=== PATIENT | female | born 1950 | race Caucasian/White ===

== ENCOUNTER 2019-11-29 14:37 | Emergency (ER) | payer MEDICARE, OTHER, SELFPAY ==
[2019-11-29 14:51] VITALS: BP 156/77; PULSE 93; RESP 16; TEMP 37.5; O2SAT 98
--- NOTE | 2019-11-29 15:33 | ED.GENADULT ---
HPI - General Adult General Chief complaint: Wound/Laceration Stated complaint: Fall Facial Injury Time Seen by Provider: 11/29/19 15:34 Source: patient Mode of arrival: ambulatory Limitations: no limitations History of Present Illness HPI narrative: 69-year-old female patient presents to the [facility] with complaints of a facial wound. Patient states that about noon today she was helping her granddaughter get on the school bus when she tripped and fell face first onto a concrete sidewalk. Patient unsure when her last tetanus shot was. Patient denies losing consciousness. Patient denies any lightheadedness, dizziness at this time. Denies any vision changes. Patient states that when she cleaned away some of the blood she noticed that there was a laceration to the upper lip and wanted to come and get checked out today. Related Data Home Medications Medication Instructions Recorded Confirmed alendronate 70 mg PO WEEKLY 11/29/19 11/29/19 aspirin [Aspir-Low] 81 mg PO DAILY 11/29/19 11/29/19 citalopram 20 mg PO DAILY 11/29/19 11/29/19 estradiol 2 mg PO DAILY 11/29/19 11/29/19 medroxyprogesterone [Provera] 2.5 mg PO DAILY 11/29/19 11/29/19 meloxicam 15 mg PO DAILY 11/29/19 11/29/19 mirtazapine 7.5 mg PO HS 11/29/19 11/29/19 Allergies Allergy/AdvReac Type Severity Reaction Status Date / Time hydrocodone Allergy Itching Verified 11/29/19 15:21 Review of Systems Review of Systems: Narrative: CONSTITUTIONAL: Denies fever, chills, or sweats. EYES: Denies visual changes, redness, or discharge. ENT: Denies rhinorrhea, congestion, sore throat, or otalgia. CARDIOVASCULAR: Denies chest pain, palpitations, or edema. RESPIRATORY: Denies cough or dyspnea. GASTROINTESTINAL: Denies abdominal pain, nausea, vomiting, or diarrhea. GENITOURINARY: Denies dysuria or hematuria. SKIN: Denies rash or itching. Positive abrasions to the bridge of the nose, laceration to the upper lip. MUSCULOSKELETAL: Denies back pain, joint pain, or myalgia. NEUROLOGIC: Denies headache, numbness, or weakness. PSYCHIATRIC: Denies anxiety or depression. PMFSH Comments At the time of my signature I agree with nursing past medical history, surgical, social, and family history. There is no relevant family history pertinent to the presenting complaint. Exam Narrative: Exam Narrative: GENERAL: Well-appearing, well-nourished, and in no acute distress. HEAD: Normocephalic, patient has some abrasions noted to the bridge of the nose. Bruising noted under the right eye. Superficial abrasions noted to the upper lip. The inside of the upper lip does have approximately 1.5 cm gaping laceration. EYES: PERRLA and EOMI. ENT: Nares clear, no rhinorrhea or epistaxis. Mucous membranes moist. Posterior pharynx with no erythema, tonsillar margin, exudates or lesions present. Bilateral TMs are clear no erythema or foreign bodies in the canal. NECK: Supple. No lymphadenopathy CHEST: Clear to auscultation. No respiratory distress. HEART: Regular rate and rhythm. No murmur heard. Normal peripheral pulses. ABDOMEN: Soft, nontender, nondistended, normal active bowel sounds. EXTREMITIES: Normal range of motion. No edema. SKIN: Warm, dry, no rash. NEURO: Alert and oriented x4, GCS 15. Cranial nerves II through XII grossly intact. No focal neurological deficits. Normal muscle strength and tone. Normal deep tendon reflexes. Negative Babinski, normal finger to nose coordination he had normal heel to smith glide. Speech is clear. Normal gait. Negative Romberg and no pronator drift Course Vital Signs Vital signs: Vital Signs Temperature 37.5 C 11/29/19 14:51 Pulse Rate 93 11/29/19 14:51 Respiratory Rate 16 11/29/19 14:51 Blood Pressure 156/77 H 11/29/19 14:51 Pulse Oximetry 98 11/29/19 14:51 Temperature 37.5 C 11/29/19 14:51 Pulse Rate 93 11/29/19 14:51 Respiratory Rate 16 11/29/19 14:51 Blood Pressure 156/77 H 11/29/19 14:51 Pulse Oximetry 98 11/29/19 14:5
[2019-11-29] MEDS: TETANUS,DIPHTHERIA,AC PERTUSSIS ADULT (0.5 ML) BOOSTRIX IM (15:53)
== END 2019-11-29 16:30 | disposition home or self-care (01) ==
PROVIDERS: Emergency Provider Nurse Practitioner Family; PCP Family Medicine
DX: S01.511A Laceration without foreign body of lip, initial encounter (principal); W10.1XXA Fall (on)(from) sidewalk curb, initial encounter; Z23 Encounter for immunization
CPT/HCPCS: 12011; 90471; 90715; 99213; G0463

== ENCOUNTER 2022-10-24 09:10 | Emergency (ER) | payer MEDICARE, SELFPAY ==
[2022-10-24 09:16] VITALS: BP 169/80; PULSE 94; RESP 20; TEMP 36.9; O2SAT 100
--- NOTE | 2022-10-24 09:27 | ED.CHESTPAIN ---
HPI - Chest Pain General Chief Complaint: Chest Pain Stated Complaint: Chest tight / sob History of Present Illness HPI narrative: Patient presents with chest tightness. Patient states she has had this going on for the last 4 days. Patient states the chest pain is worse with exertion and she is short of breath with exertion. Chest pain is worse with inspiration she denies any radiation of the pain. Patient denies any cough denies any lung or heart problems. Related Data Home Medications Medication Instructions Recorded Confirmed alendronate 70 mg tablet 70 mg PO WEEKLY 11/29/19 11/29/19 citalopram 20 mg tablet 20 mg PO DAILY 11/29/19 11/29/19 estradiol 2 mg tablet 2 mg PO DAILY 11/29/19 11/29/19 medroxyprogesterone 2.5 mg tablet 2.5 mg PO DAILY 11/29/19 11/29/19 (Provera) meloxicam 15 mg tablet 15 mg PO DAILY 11/29/19 11/29/19 mirtazapine 7.5 mg tablet 7.5 mg PO HS 11/29/19 11/29/19 Allergies Allergy/AdvReac Type Severity Reaction Status Date / Time hydrocodone Allergy Itching Verified 10/24/22 09:18 Review of Systems Review of Systems: CONSTITUTIONAL: Denies fever, chills, or sweats. EYES: Denies visual changes, redness, or discharge. ENT: Denies rhinorrhea, congestion, sore throat, or otalgia. CARDIOVASCULAR: Denies chest pain, palpitations, or edema. RESPIRATORY: Denies cough or dyspnea. GASTROINTESTINAL: Denies abdominal pain, nausea, vomiting, or diarrhea. GENITOURINARY: Denies dysuria or hematuria. SKIN: Denies rash or itching. MUSCULOSKELETAL: Denies back pain, joint pain, or myalgia. NEUROLOGIC: Denies headache, numbness, or weakness. PSYCHIATRIC: Denies anxiety or depression. PMFSH Comments At time of signature, agree with nursing past medical, surgical, social and family history. There is no relevant family history pertinent to the presenting complaint Exam Narrative: GENERAL: Well-appearing, well-nourished, and in no acute distress. HEAD: Normocephalic, atraumatic. EYES: PERRLA and EOMI. ENT: Nares clear, no rhinorrhea or epistaxis. Mucous membranes moist. NECK: Supple. CHEST: Clear to auscultation. No respiratory distress. HEART: Regular rate and rhythm. No murmur heard. Normal peripheral pulses. ABDOMEN: Soft, nontender, nondistended, normal active bowel sounds. EXTREMITIES: Normal range of motion. No edema. SKIN: Warm, dry, no rash. NEURO: No focal deficits. Alert and oriented x3. Kathryn Coma Scale Eye Opening: Spontaneous 4 Fiatt Coma Scale Motor: Obeys Commands 6 Kathryn Coma Scale Verbal: Oriented 5 Kathryn Coma Scale Total 15 Course Course Level of Care: Express Care Visit Vital Signs Vital signs: Vital Signs Temperature 36.9 C 10/24/22 09:16 Pulse Rate 94 10/24/22 09:16 Respiratory Rate 20 10/24/22 09:16 Blood Pressure 169/80 H 10/24/22 09:16 Pulse Oximetry 100 10/24/22 09:16 Oxygen Delivery Room Air 10/24/22 09:16 Temperature 36.9 C 10/24/22 09:16 Pulse Rate 94 10/24/22 09:16 Respiratory Rate 20 10/24/22 09:16 Blood Pressure 169/80 H 10/24/22 09:16 Pulse Oximetry 100 10/24/22 09:16 Oxygen Delivery Room Air 10/24/22 09:16 Please JOANNA schedule a followup visit with your personal physician for further evaluation and treatment. Including recheck and discussion of your blood pressure. If your symptoms persist, change or worsen significantly before you can contact your personal physician then please, without delay, go to the emergency department for further evaluation Transfer Transfered to: [facility] Transportation: Other (Patient declined ambulance will go by private vehicle) Transfer rationale: Higher level care to improve evaluate chest pain and pain with inspiration Accepting physician: Dr. Gr Transfer comments: Patient refuses to go by ambulance states she can not drive herself by private vehicle MDM - Chest Pain Differential Diagnosis Differential diagnosis: Likely fracture of rib, pneumothorax, stab
--- NOTE | 2022-10-24 09:28 | ECG_ITS ---
Measurements Intervals [place] Rate: 87 P: 38 RI: 152 QRS: 34 QRSD: 76 T: 58 QT: 330 QTc: 398 Interpretive Statements SINUS RHYTHM RSR' IN V1 OR V2, PROBABLY NORMAL VARIANT BORDERLINE ECG NO PREVIOUS ECG AVAILABLE FOR COMPARISON Electronically Signed On 10-24-2022 13:17:08 BUSINESS INTELLIGENCE ADMINISTRATOR by Chandrakant Jacobs D.O.
== END 2022-10-24 09:45 | disposition short-term general hospital (02) ==
PROVIDERS: Emergency Provider Nurse Practitioner Family; PCP Family Medicine
DX: R07.9 Chest pain, unspecified (principal); R07.89 Other chest pain; I10 Essential (primary) hypertension; M81.0 Age-related osteoporosis without current pathological fracture
CPT/HCPCS: 93005; 99213; G0463

== ENCOUNTER 2022-11-16 08:55 | Emergency (ER) | payer MEDICARE, SELFPAY ==
--- NOTE | ~2022-11-16 | XR_ITS ---
Clinical Indication: Pneumonia, cough PA and lateral views of the chest: Comparison: None Findings: Probable calcified right lung granulomas noted. No other consolidation or pleural effusion. Possible COPD. Cardiomediastinal silhouette is within normal limits. Bones and soft tissues are unr emarkable. Impression: Possible COPD, with evidence of prior granulomatous disease. No acute consolidation or pleural effusion. Reviewed, dictated and finalized at location . [employer] Impression: Possible COPD, with evidence of prior granulomatous disease. No acute consolidation or pleural effusion.
[2022-11-16 09:04] VITALS: BP 144/68; PULSE 94; RESP 16; TEMP 36.9; O2SAT 100
--- NOTE | 2022-11-16 09:18 | ED.URI ---
HPI - URI/Sore Throat General Chief Complaint: Upper Respiratory Infection Stated Complaint: Sore Throat/Cough Source: patient and RN notes reviewed History of Present Illness HPI Narrative: 72-year-old female presents urgent care with complaints of a cough and sore throat since yesterday. Patient denies any fevers, chills, chest pain, vomiting, diarrhea, congestion, or ear pain. Patient states she was diagnosed with pneumonia at the end of September and was placed on a Z-Edis at that time. Some parts of this dictation were generated by voice recognition software and may contain typographical and/or grammatical inaccuracies. Related Data Home Medications Medication Instructions Recorded Confirmed alendronate 70 mg tablet 70 mg PO WEEKLY 11/29/19 11/16/22 citalopram 20 mg tablet 20 mg PO DAILY 11/29/19 11/16/22 estradiol 2 mg tablet 2 mg PO DAILY 11/29/19 11/16/22 medroxyprogesterone 2.5 mg tablet 2.5 mg PO DAILY 11/29/19 11/16/22 (Provera) celecoxib 100 mg capsule 100 mg PO DIRECTED 10/24/22 11/16/22 hydrochlorothiazide 12.5 mg tablet 12.5 mg PO DIRECTED 10/24/22 11/16/22 losartan 50 mg tablet 50 mg PO DIRECTED 10/24/22 11/16/22 Allergies Allergy/AdvReac Type Severity Reaction Status Date / Time hydrocodone Allergy Itching Verified 11/16/22 09:08 Review of Systems Review of Systems: CONSTITUTIONAL: Denies fever, chills, or sweats. EYES: Denies visual changes, redness, or discharge. ENT: Reports sore throat CARDIOVASCULAR: Denies chest pain, palpitations, or edema. RESPIRATORY: Reports cough but denies any shortness of breath GASTROINTESTINAL: Denies abdominal pain, nausea, vomiting, or diarrhea. GENITOURINARY: Denies dysuria or hematuria. SKIN: Denies rash or itching. MUSCULOSKELETAL: Denies back pain, joint pain, or myalgia. NEUROLOGIC: Denies headache, numbness, or weakness. PMFSH Comments At the time of my signature, I reviewed and agree with the nursing past medical, surgical, social, and family history. There is no relevant family history pertinent to the patient complaint. Exam Narrative: GENERAL: This is a well-nourished, well-developed patient, in no apparent distress. HEAD: normocephalic, atraumatic. EYES: PERRL. Sclera clear/white. Vision is grossly intact. EARS: External ears normal, auditory canals clear and without drainage, TMs normal without perforation. Hearing grossly intact. NOSE: External nose normal with no obvious nasal discharge, nares without redness, no rhinorrhea. THROAT: Mucous membranes moist, posterior pharynx clear. NECK: Neck supple, non-tender without lymphadenopathy, masses or thyromegaly. CARDIOVASCULAR: Regular rate and rhythm without murmurs, gallops, or rubs. RESPIRATORY: Clear to auscultation. Breath sounds equal bilaterally. No wheezes, rales, or rhonchi. GASTROINTESTINAL: Abdomen soft, non-tender, nondistended. Bowel sounds are active. No hepato-splenomegaly, or palpable masses. No guarding. SKIN: warm, intact with no suspicious lesions or rash, good texture and turgor. NEURO: awake, alert, and oriented to person, place and time. There were no obvious focal neurologic abnormalities. Course Course Level of Care: Express Care Visit Vital Signs Vital signs: Vital Signs Temperature 98.5 F 11/16/22 09:04 Pulse Rate 94 11/16/22 09:04 Respiratory Rate 16 11/16/22 09:04 Blood Pressure 144/68 H 11/16/22 09:04 Pulse Oximetry 100 11/16/22 09:04 Oxygen Delivery Room Air 11/16/22 09:04 Temperature 98.5 F 11/16/22 09:04 Pulse Rate 94 11/16/22 09:04 Respiratory Rate 16 11/16/22 09:04 Blood Pressure 144/68 H 11/16/22 09:04 Pulse Oximetry 100 11/16/22 09:04 Oxygen Delivery Room Air 11/16/22 09:04 Reviewed MDM - URI/Sore Throat MDM Narrative Medical decision making narrative: Rapid strep is negative in the office; however we will send to the lab for confirmation; there is a small percentage chance that it can come back positive
== END 2022-11-16 09:55 | disposition home or self-care (01) ==
PROVIDERS: Emergency Provider Nurse Practitioner Family; PCP Family Medicine
DX: J40 Bronchitis, not specified as acute or chronic (principal); J02.9 Acute pharyngitis, unspecified
CPT/HCPCS: 71046; 87081; 87880; 99213; G0463